=== PATIENT | female | born 1975 | race Caucasian/White ===

== ENCOUNTER → 2017-01-30 | Outpatient (CLI) | payer BC | LOC: MC.RAD 10:20 | DX: Z12.31 Encounter for screening mammogram for malignant neoplasm of breast (principal) ==

== ENCOUNTER → 2017-11-23 | Outpatient (CLI) | payer BC | LOC: MC.RAD 09:00 | DX: N64.4 Mastodynia (principal) | CPT/HCPCS: G0279 ==

== ENCOUNTER 2017-12-07 18:25 | Emergency (ER) | payer BC ==
[~2017-12-07] VITALS: Ht 177.8 cm; Wt 120.5 kg
[2017-12-07 18:37] VITALS: BP 143/75; TEMP 98.8
[2017-12-07] MEDS ORDERED: CEPHALEXIN500 M1 PO (19:49)
[2017-12-07 20:05] VITALS: PULSE 97
== END 2017-12-07 20:08 | disposition home or self-care (01) ==
LOC: COL.ER 18:25
DX: M79.604 Pain in right leg (principal); M79.89 Other specified soft tissue disorders; E66.9 Obesity, unspecified; Z68.38 Body mass index [BMI] 38.0-38.9, adult

== ENCOUNTER → 2017-12-08 | Outpatient (CLI) | payer BC ==
[~2017-12-08] MED LIST: CEPHALEXIN500 M1 PO
== END ==
LOC: COL.VAS 09:13
DX: M79.661 Pain in right lower leg (principal); R22.41 Localized swelling, mass and lump, right lower limb

== ENCOUNTER → 2018-01-30 | Outpatient (CLI) | payer BC | LOC: MC.RAD 14:00 | DX: N63.11 Unspecified lump in the right breast, upper outer quadrant (principal) | CPT/HCPCS: G0279 ==

== ENCOUNTER 2018-06-04 08:37 | Outpatient (RCR) | payer OTHER | END 2018-07-24 15:34 | disposition home or self-care (01) | LOC: WSOH 08:37 | DX: M25.561 Pain in right knee (principal); M17.11 Unilateral primary osteoarthritis, right knee; X50.0XXA Overexertion from strenuous movement or load, initial encounter; Y92.214 College as the place of occurrence of the external cause; Y93.89 Activity, other specified; Y99.0 Civilian activity done for income or pay ==

== ENCOUNTER 2018-12-17 16:45 | Outpatient (RCR) | payer BC | END 2018-12-27 | disposition still patient (30) | LOC: WSC | DX: M17.0 Bilateral primary osteoarthritis of knee (principal); Z96.652 Presence of left artificial knee joint ==

== ENCOUNTER 2020-10-09 13:05 | Outpatient (RCR) | payer BC | END 2021-01-07 | LOC: PT.GENESIS | DX: M25.561 Pain in right knee (principal) ==

== ENCOUNTER → 2020-11-13 | Outpatient (CLI) | payer BC | LOC: MC.RAD 14:14 | DX: Z12.31 Encounter for screening mammogram for malignant neoplasm of breast (principal) ==

== ENCOUNTER → 2022-05-03 | Outpatient (CLI) | payer BC | LOC: MC.RAD 09:15 | DX: Z12.31 Encounter for screening mammogram for malignant neoplasm of breast (principal) ==

== ENCOUNTER 2022-10-26 09:36 | Outpatient (RCR) | payer BC | END 2022-11-03 | disposition home or self-care (01) | LOC: PT.GENESIS | DX: M47.812 Spondylosis without myelopathy or radiculopathy, cervical region (principal) ==